=== PATIENT | male | born 1965 | race Caucasian/White ===

== ENCOUNTER 2017-04-06 19:21 | Emergency (ER) | payer BC ==
[2017-04-06 19:44] VITALS: RESP 16
--- NOTE | 2017-04-06 20:47 | EDPHY ---
H & P Time Seen by Provider: 04/06/17 19:35 HPI/ROS: CHIEF COMPLAINT: Right hand pain History by patient HISTORY OF PRESENT ILLNESS: 52-year-old [id number] man presents complaining of pain in his right hand after tripping and falling and landing on outstretched hands on a sidewalk. This happened approximately 3 hours prior to admission. He complains specifically pain in his thenar eminence and in his right proximal small finger. He denies any numbness or tingling. He has not taken anything for the pain. He has some mild pain in his left thenar eminence. REVIEW OF SYSTEMS: As in HPI, and all other systems reviewed and are negative Smoking Status: Former smoker Physical Exam: General Appearance: Alert and no distress. Eyes: Pupils equal and round no injection. Musculoskeletal: Neck is supple and nontender. Extremities: Right hand with marked tenderness over right proximal small finger proximal phalanx, decreased range of motion secondary to pain, distal cap refill and sensation and cap refill intact. Mild tenderness over right thenar eminence but no swelling or deformity or ecchymoses, no snuffbox tenderness, full range of motion of index middle and ring finger and thumb, radial pulse 2 +and equal bilaterally, mild tenderness of the thenar eminence without deformity or ecchymosis or swelling Skin: No rashes or lesions. Constitutional: Initial Vital Signs Temperature (C) 36.6 C 04/06/17 19:43 Heart Rate 65 04/06/17 19:43 Respiratory Rate 16 04/06/17 19:43 Blood Pressure 125/88 H 04/06/17 19:43 O2 Sat (%) 98 04/06/17 19:43 O2 Delivery Mode Room Air Allergies/Adverse Reactions: No Known Allergies Allergy (Unverified 01/22/16 16:30) Home Medications: Medication Instructions Recorded Claritin 01/22/16 Flonase Allergy Relief 01/22/16 Lisinopril-Hctz 10-12.5 mg Tab 01/22/16 Ondansetron Odt [Zofran Odt] 4 mg PO Q6-8PRN PRN #8 tab 01/22/16 Triumeq Tablet 01/22/16 Hydrocodone/APAP 5/325 [Anderson 1 - 2 tab PO Q4H PRN #7 tab 04/06/17 5/325 (*)] MDM/Departure - MDM Imaging Results: Imaging Impressions Hand X-Ray 04/06/17 19:45 Impression: Mildly comminuted nondisplaced intraarticular fracture at the base of the 5th proximal phalanx. ED Course/Re-evaluation: 51-year-old man presents with pain in his right hand after mechanical fall. X- ray reveals right small finger proximal phalanx fracture. Patient was placed in an ulnar gutter splint and referred to Hand surgery for follow-up. We discussed home care, pain control and orthopedic follow-up. Patient expresses verbal understanding of plan. - Depart Disposition: Home, Routine, Self-Care Clinical Impression: Fracture of proximal phalanx of digit of right hand Qualifiers: Encounter type: initial encounter Fracture type: closed Qualified Code(s): S62.619A - Displaced fracture of proximal phalanx of unspecified finger, initial encounter for closed fracture Condition: Good Instructions: Finger Fracture (ED) Additional Instructions: You were seen by Dr. Evelin Alvarado today. Keep splint clean and dry. Please follow up with orthopedic surgeon, Dr. Oglesby , as soon as possible. Take ibuprofen as needed for pain and Anderson as needed for severe pain. Do not drive or operate heavy machinery if you are taking Anderson. Return for any worsening or new concerns. Prescriptions: Hydrocodone/APAP 5/325 [Anderson 5/325 (*)] 1 - 2 tab PO Q4H PRN #7 tab PRN Reason: Pain, Moderate Referrals: Consuelo Montejo NP [Primary Care Provider] - As per Instructions Remi Oglesby MD [Medical Doctor] - As per Instructions
[2017-04-06 21:32] VITALS: BP 110/70; PULSE 67; TEMP 98.1; O2SAT 95
== END 2017-04-06 21:31 | disposition home or self-care (01) ==
LOC: CED 19:21
DX: S62.616A Displaced fracture of proximal phalanx of right little finger, initial encounter for closed fracture (principal); Z87.891 Personal history of nicotine dependence; W01.0XXA Fall on same level from slipping, tripping and stumbling without subsequent striking against object, initial encounter
CPT/HCPCS: 73130-PO